=== PATIENT | female | born 1995 | race American Indian/Alaskan Native ===

== ENCOUNTER 2018-10-10 15:11 | Emergency (ER) | payer OTHER, MEDICAID, SELFPAY ==
[2018-10-10 15:28] VITALS: BP 108/59; PULSE 80; RESP 14; TEMP 37.2; O2SAT 99; BMI 31.2
--- NOTE | 2018-10-10 15:32 | DI.RAD.S_ITS ---
PROCEDURE: XR ANKLE LT MIN 3V INDICATIONS: twist and pain left ankle. TECHNIQUE: 3 views of the ankle were acquired. COMPARISON: None. FINDINGS: Bones: There is a slight cortical irregularity of the anterior aspect of the talar dome. Ankle mortise is normally aligned. No suspicious bony lesions. Soft tissues: No tibiotalar joint effusion. Achilles tendon appears normal. IMPRESSION: Slight cortical talar dome irregularity as above. This is overall nonspecific. However, given history of trauma, recommend correlation with point tenderness a small area of fracture cannot be definitively excluded. Dictated by: Camille Campos M.D. on 10/10/2018 at 15:54 Approved by: Camille Campos M.D. on 10/10/2018 at 15:55
--- NOTE | 2018-10-10 17:33 | ED.LOWEXIN ---
HPI - Extremity Injury (Lower) General Chief Complaint: Extremity Injury, Lower Stated Complaint: thinks she sprained her left ankle Time Seen by Provider: 10/10/18 17:05 Source: patient Mode of arrival: ambulatory Limitations: no limitations History of Present Illness HPI Narrative: This is a 23-year-old female who states that she was walking when her ankle gave out . She describes an inversion of the ankle while walking. Patient states she has pain kind of on both sides of the ankle and on the front. 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 He weighs about 30 lb. Patient states that made quite a bit more uncomfortable. She states she feels a little bit of numbness along the side of the foot. She has pain with ambulation. She denies any weakness. She denies any other injuries. She denies any past medical history, prior surgical history or allergies. Related Data Allergies Allergy/AdvReac Type Severity Reaction Status Date / Time No Known Drug Allergies Allergy Verified 10/10/18 15:32 Review of Systems Review of Systems ROS Unobtainable: All systems reviewed & are unremarkable except as noted in HPI and below Constitutional Denies weakness Musculoskeletal Reports as per HPI, Reports abnormal gait, Reports arthralgias, Reports joint swelling (mild), Reports limited range of motion and Reports numbness Integumentary/Breasts Denies rash, Denies unusual bruising and Denies wounds Neurologic Reports abnormal gait, Reports numbness and Denies weakness PFSH Social History Smoking Status: Current every day smoker Exam Narrative Exam Narrative: GENERAL: Alert and oriented x three, HEENT: Head normocephalic, atraumatic, EOMI, pupils reactive, face symmetric, moist mucous membranes NECK: Supple, full range of motion CARDIOVASCULAR: Regular rate and rhythm without murmurs, rubs or gallops. RESPIRATORY: Breath sounds equal bilaterally, no wheezes rales or rhonchi. ABDOMEN: Soft, nontender. Normoactive bowel sounds all 4 quadrants. No guarding or rebound, rigidity, no mass : No CVA tenderness EXTREMITIES: Normal range of motion, no clubbing, mild edema of the ankle. Patient does not have any lateral or medial malleoli tenderness. Patient does have some tenderness over the anterior talus, she does not have any other bony tenderness of the foot or over the metatarsals or toes. Patient's cap refill less than 2 sec in all 5 toes, 2+ dorsalis pedis, patient does not have any bruising, ecchymosis or wounds.. Neurovascularly intact NEUROLOGICAL: Cranial nerves II through XII grossly intact. Moving all extremities SKIN: Warm, dry, no petechiae, no rashes or lesions. Initial Vital Signs Initial Vital Signs: Vital Signs Temperature 98.9 F 10/10/18 15:28 Pulse Rate 80 10/10/18 15:28 Respiratory Rate 14 10/10/18 15:28 Blood Pressure 108/59 L 10/10/18 15:28 Pulse Oximetry 99 10/10/18 15:28 Course Orders Ordered: ED Orders 10/10/18 15:32 XR ankle LT min 3V Stat Discontinued Medications Ibuprofen (Advil) 400 mg PO NOW ONE Stop: 10/10/18 17:31 Last Admin: 10/10/18 17:46 Dose: 400 mg Vital Signs - 8 hr 10/10/18 15:28 Temperature 98.9 F Pulse Rate 80 Respiratory Rate 14 Blood Pressure 108/59 L Pulse Oximetry 99 MDM - Extremity Injury (Lower) Imaging Data ankle xray: Radiologist's impression: [address] [address] XRay Report Signed Patient: Desirae Beauchamp [facility]#: [id number] : 1995Acct:[id number] Age/Sex: 23 / FDate of Service: 10/10/18 Loc: ED Accession Number: [id number] Procedure: XR ankle LT min 3V Ordering Provider: Mariana Ivan D.O. PROCEDURE: XR ANKLE LT MIN 3V INDICATIONS: twist and pain left ankle. TECHNIQUE: 3 views of the ankle were acquired. COMPARISON: None. FINDINGS: Bones: There is a slight cortical irregularity of the anterior aspect of the talar dome. Ankle mortise is normally aligned. No suspicious bony lesions. Soft tissues: No tibiotalar joint effusion. Achilles tendon appears normal. IMPRESSION: Slight cortical talar dome irregularity as above. This is overall nonspecific. However, given history of trauma, recommend correlation with point tenderness a small area of fracture cannot be definitively excluded. Dictated by: Camille Campos M.D. on 10/10/2018 at 15:54 Approved by: Camille Campos M.D. on 10/10/2018 at 15:55 Discharge Plan Departure Patient Disposition: Home Clinical Impression: Fracture of talus Discharge Date/Time: 10/10/18 18:10 Interventions: ED Discharge Assessment Last Done: 10/10/18 18:09 Instructions: DI for Talus Fracture Activity Restrictions/Additional Instructions: Follow up with orthopedic surgery in the next 5-7 days. Call for an appointment tomorrow. Wear a walking boot until cleared by Orthopedic surgery. Use crutches until cleared by surgery. You may do toe touch weight-bearing. You may take ibuprofen and/or Tylenol as needed for pain. You may take up to 600 mg of ibuprofen every 6 hr and or up to a 1000 mg of Tylenol every 8 hr as needed. Splint Care: Keep splint clean and dry. Elevated affected body part to decrease swelling. OK to use ice pack on the affected body part. Use for 15-20 minutes each time, for 5-6x per day. If you develop worsening pain, numbness, tingling, discoloration of the affected body part, loosen the splint by loosening the AXEL wrap, and either see your doctor for an urgent re-assessment, or return to the Emergency Department. Return to the Emergency Department for any new or worsening symptoms. Referrals: Parminder Simons MD [Physician] -
[2018-10-10] MEDS: IBUPROFEN 400 MG TABLET PO (17:46)
== END 2018-10-10 18:10 | disposition home or self-care (01) ==
PROVIDERS: Emergency Provider Emergency Medicine
DX: S92.102A Unspecified fracture of left talus, initial encounter for closed fracture (principal); W01.0XXA Fall on same level from slipping, tripping and stumbling without subsequent striking against object, initial encounter
CPT/HCPCS: 73610; 99282; 99283

== ENCOUNTER → 2018-10-27 12:41 | Outpatient (CLI) | payer OTHER, MEDICAID, SELFPAY ==
--- NOTE | 2018-10-27 12:43 | DI.MRI.S_ITS ---
PROCEDURE: MR ANKLE LT WO CON INDICATIONS: ACUTE LEFT ANKLE PAIN TECHNIQUE: Noncontrast sagittal T1 spin echo and T2 fast spin echo with fat saturation, axial proton density fast spin echo and T2 fast spin echo with fat saturation, coronal T1 spin echo and T2 fast spin echo with fat saturation through the ankle/hindfoot. COMPARISON: [facility], CR, XR ANKLE LT MIN 3V, 10/10/2018, 15:43. FINDINGS: Image quality: Diagnostic. Bones and joints: There is no acute fracture, dislocation, or suspicious osseous lesion identified involving the osseous structures of the midfoot or hindfoot. Ankle mortise is well-maintained. There are no osteochondral defects involving the tibial plafond toward the talar dome. No significant joint effusions are identified. There are no significant degenerative changes of the midfoot or hindfoot. Medial structures: The deltoid and spring ligaments are intact. There slight increased signal involving the distal margin of the tibialis posterior tendon with a small amount of fluid contained within its corresponding tendon sheath. The flexor digitorum longus tendon is intact and within normal limits. There is moderate increased signal evident involving the distal flexor hallucis longus myotendinous junction with a moderate amount of fluid contained within its tendon sheath. The posterior tibial neurovascular bundle appears to be within normal limits through the region of the tarsal tunnel without extrinsic mass effect. Lateral structures: The anterior and posterior distal tibiofibular ligaments are noted to be intact. The anterior and posterior talofibular ligaments are intact. The calcaneofibular ligament is not adequately seen, but appears to be intact. There is slight increased signal identified involving the peroneus brevis and peroneus longus tendons just below the level of the lateral malleolus without significant tearing. Normal fatty signal is seen within the sinus tarsi. Anterior structures: The tibialis anterior, extensor hallucis longus, and extensor digitorum longus tendons appear intact. Posterior and plantar structures: Achilles tendon is intact. Medial and lateral bands of the plantar fascia are of normal thickness. IMPRESSION: 1. Moderate tendinopathy and tenosynovitis of the flexor hallucis longus. 2. Mild tibialis posterior tenosynovitis. 3. Mild peroneus brevis and peroneus longus tendinopathy. 4. No acute or full thickness ligamentous injuries of the ankle are evident. Dictated by: Rolf Coker M.D. on 10/27/2018 at 13:02 Approved by: Rolf Coker M.D. on 10/27/2018 at 13:11
== END ==
PROVIDERS: Visit Provider Orthopaedic Surgery
DX: M25.572 Pain in left ankle and joints of left foot (principal); M65.872 Other synovitis and tenosynovitis, left ankle and foot
CPT/HCPCS: 73721

== ENCOUNTER 2022-09-28 16:42 | Emergency (ER) | payer OTHER, SELFPAY ==
[2022-09-28 16:53] VITALS: BP 124/62; PULSE 64; RESP 16; TEMP 36.6; O2SAT 99; BMI 24.4
[2022-09-28 17:00] VITALS: BP 80/72; PULSE 48; RESP 18
[2022-09-28 17:05] VITALS: BP 90/60; PULSE 52; RESP 18
[2022-09-28 17:37] LABS: Add Manual Diff / Slide Review NO; Basophils Absolute Auto 100 /uL (0-100); Basophils Percent Auto 0.6 % (0-2); Eosinophils Absolute Auto 100 /uL (0-450); Eosinophils Percent Auto 1.1 % (2-4); Hemoglobin 11.6 g/dL (12.0-16.0); Lymphocytes Absolute Auto 1300 /uL (1100-4500); Mean Corpuscular HGB Conc 33.3 % (30-36); Mean Corpuscular Hemoglobin 28.6 PG (26-34); Mean Corpuscular Volume 85.8 fL (80-100); Monocytes Absolute Auto 500 /uL (0-900); Monocytes Percent Auto 5.5 % (3-14); Neutrophils Absolute Auto 7400 /uL (1500-7000); Neutrophils Percent Auto 78.8 % (50-75); Platelet Count 282 X10^3/uL (150-400); Red Blood Cell Count 4.08 X10^6/uL (4.0-5.2); Red Cell Distribution Width 13.8 % (11.6-14.8); White Blood Cell Count 9.4 X10^3/uL (4.5-11.0)
[2022-09-28 17:40] LABS: Alanine Aminotransferase 13 IU/L (<35); Alkaline Phosphatase 50 U/L (38-126); Aspartate Aminotransferase 22 IU/L (14-36); BUN Creatinine Ratio 16.7 (6-22); Bilirubin Total 0.6 mg/dL (0.2-1.3); Blood Urea Nitrogen 10 mg/dL (7-17); Calcium 8.7 mg/dL (8.4-10.2); Carbon Dioxide 24 mmol/L (22-32); Chloride 103 mmol/L (98-107); Estimated Glomerular Filt Rate > 60 mL/min (>60); Glucose 100 mg/dL (70-100); HEMOLYSIS < 15 (0-50); Potassium 3.6 mmol/L (3.4-5.1); Sodium 138 mmol/L (137-145); Total Protein 7.8 g/dL (6.3-8.2)
[2022-09-28 17:57] LABS: HCG Quantitative /Beta subunit < 2.4 mIU/mL
[2022-09-28 18:05] VITALS: BP 110/70; PULSE 62; RESP 18
[2022-09-28 20:10] VITALS: BP 99/62; PULSE 65; RESP 18; O2SAT 99
--- NOTE | 2022-09-29 14:07 | ED_ITS ---
HPI - Female Genitourinary <Mercy Whitaker PA-C - Last Filed: 09/29/22 14:25> General Chief complaint: OB/Uterine Contractions Stated complaint: losing blood and on period/ fainting Time Seen by Provider: 09/28/22 17:05 History of Present Illness HPI Narrative: 27-year-old female with no reported past medical history presents to the ED with a heavier than normal period. Patient states that she tends to have heavy periods as a baseline, also associated with clots. However, patient is here in the ED today since this. Has been heavier than her usual period with larger clots. Patient also endorses abdominal cramping which is baseline for her during her period. Patient also states that she has frequent syncopal episodes with prodromes. Patient describes her prodromes as diminished hearing, tunnel vision. Patient states that during this. She is had 1 syncopal episode. Patient has a brother who was diagnosed with a congenital condition, which she stated was SVT for which he has had some ablation procedures. Patient denies that she has been seen by a natural sciences manager or evaluated for the syncopal episodes. Patient denies fever, chills, chest pain, shortness of breath, nausea, vomiting, constipation, diarrhea, dysuria, lightheadedness, dizziness. Patient currently is currently not on control. Related Data Allergies Allergy/AdvReac Type Severity Reaction Status Date / Time No Known Drug Allergies Allergy Verified 09/28/22 16:58 Review of Systems <Mercy Whitaker PA-C - Last Filed: 09/29/22 14:25> Review of Systems ROS Unobtainable: All systems reviewed & are unremarkable except as noted in HPI and below Constitutional Constitutional: Denies chills, Denies fatigue, Denies fever(s), Denies frequent falls, Denies lethargy and Denies weakness Eyes Eyes: Denies change in vision, Denies eye discharge, Denies irritation and Denies loss of vision ENT Ears, Nose, Mouth, and Throat: Denies change in voice, Denies dizziness, Denies neck pain, Denies sore throat and Denies throat swelling Cardiovascular Cardiovascular: Denies chest pain, Denies irregular heart rhythm, Denies lightheadedness, Denies palpitations, Denies dyspnea, Denies dyspnea on exertion and Denies orthopnea Respiratory Respiratory: Denies cough, Denies dyspnea, Denies dyspnea on exertion and Denies wheezing Gastrointestinal Gastrointestinal: Denies change in bowel habits, Denies diarrhea, Denies nausea and Denies vomiting Genitourinary Genitourinary: Denies hematuria, Reports menorrhagia, Reports dysmenorrhea, Denies flank pain, Denies urinary incontinence and Denies urinary urgency Musculoskeletal Musculoskeletal: Denies back pain, Denies muscle weakness, Denies neck pain, Denies numbness and Denies tingling Integumentary/Breasts Skin/Breast: Denies pruritus, Denies erythema, Denies rash and Denies wounds Neurologic Neurologic: Denies behavioral changes, Denies confusion, Denies dizziness, Rishi es frequent falls, Denies loss of vision, Denies numbness, Denies tingling and Denies weakness Psychiatric Psychiatric: Denies anxiety, Denies behavioral changes, Denies confusion, Denies depression, Denies homicidal ideation and Denies suicidal ideation Endocrine Endocrine: Denies fatigue, Denies flushing and Denies palpitations Hematologic/Lymphatic Hematologic/Lymphatic: Denies easy bruising Allergic/Immunologic Allergic/Immunologic: Denies urticaria, Denies throat swelling and Denies wheezing Patient History <Mercy Whitaker PA-C - Last Filed: 09/29/22 14:25> alcohol intake frequency: 0-2 drinks per day Substance Use Type: does not use Exam <Mercy Whitaker PA-C - Last Filed: 09/29/22 14:25> Narrative Exam Narrative: Const General:?cooperative, healthy appearing and comfortable [facility] Head:?normal to inspection Ears:?hearing grossly normal bilaterally Nose:?external nose normal Face and sinus:?normal facial exam and sinuses nontender Mouth:?oral mucosae normal Throat:?posterior oropharynx normal Eyes General:?appearance normal, both eyes and all related structures Neck Neck:?normal visual inspection and no lymphadenopathy noted Resp Effort & Inspection:?normal respiratory effort Auscultation:?clear to auscultation bilaterally Cardio Rate:?regular rate Rhythm:?regular rhythm GI Abdomen is soft, nondistended. Abdomen is diffusely tender to palpation. There is no CVA tenderness. Neuro General:?patient alert, patient awake and patient oriented x3 Initial Vital Signs Initial Vital Signs: Vital Signs Temperature 98 F 09/28/22 16:53 Pulse Rate 64 09/28/22 16:53 Respiratory Rate 16 09/28/22 16:53 Blood Pressure 124/62 09/28/22 16:53 Pulse Oximetry 99 09/28/22 16:53 Oxygen Delivery Method 09/28/22 16:53 <Clint Pendleton DO - Last Filed: 09/30/22 10:45> Initial Vital Signs Initial Vital Signs: Vital Signs Temperature 98 F 09/28/22 16:53 Pulse Rate 64 09/28/22 16:53 Respiratory Rate 16 09/28/22 16:53 Blood Pressure 124/62 09/28/22 16:53 Pulse Oximetry 99 09/28/22 16:53 Oxygen Delivery Method 09/28/22 16:53 MDM - Female Genitourinary <Mercy Whitaker PA-C - Last Filed: 09/29/22 14:25> Lab Data Result diagrams: 09/28/22 17:10 09/28/22 17:10 Labs: Lab Results 09/28/22 09/28/22 09/28/22 Range/Units 17:10 17:10 17:10 WBC 9.4 (4.5-11.0) X10^3/uL RBC 4.08 (4.0-5.2) X10^6/uL Hgb 11.6 L (12.0-16.0) g/dL Hct 35.0 L (36-46) % MCV 85.8 (80-100) fL MCH 28.6 (26-34) PG MCHC 33.3 (30-36) % RDW 13.8 (11.6-14.8) % Plt Count 282 (150-400) X10^3/uL Neut % (Auto) 78.8 H (50-75) % Lymph % (Auto) 14.0 L (25-40) % [place] % (Auto) 5.5 (3-14) % Eos % (Auto) 1.1 L (2-4) % Baso % (Auto) 0.6 (0-2) % Neut # (Auto) 7400 H (3856-0878) /uL Lymph # (Auto) 1300 (6621-7618) /uL [place] # (Auto) 500 (0-900) /uL Eos # (Auto) 100 (0-450) /uL Baso # (Auto) 100 (0-100) /uL Sodium 138 (137-145) mmol/L Potassium 3.6 (3.4-5.1) mmol/L Chloride 103 (98-107) mmol/L Carbon Dioxide 24 (22-32) mmol/L BUN 10 (7-17) mg/dL Creatinine 0.60 (0.52-1.04) mg/dL Estimated GFR > 60 (>60) mL/min BUN/Creatinine Ratio 16.7 (6-22) Glucose 100 (70-100) mg/dL Calcium 8.7 (8.4-10.2) mg/dL Total Bilirubin 0.6 (0.2-1.3) mg/dL AST 22 (14-36) IU/L ALT 13 (<35) IU/L Alkaline Phosphatase 50 (38-126) U/L Total Protein 7.8 (6.3-8.2) g/dL HCG, Quant < 2.4 mIU/mL Blood Type A Positive Antibody Screen Negative MDM Narrative Medical decision making narrative: 27-year-old female with no reported past medical history presents to the ED with a heavier than normal period. Concern for versus threatened miscarriage versus anemia versus cardiac etiology versus vasovagal syncope versus other. Will obtain EKG, labs, hCG quant. HCG was negative, labs within normal limits. No evidence of anemia. Patient offered to trial medroxyprogesterone to stem the bleeding, patient considered but deferred any treatment for it. Considered imaging for diffuse abdominal tenderness, however patient states that this is baseline for her during her periods. Patient states she did not come to the ED for the cramping, was more concerned about anemia from the heavy periods. Patient agrees to return to the ED if the bleeding, cramping are more prolonged or severe. EKG with sinus bradycardia with short GA, no acute ST-T changes, no axis deviation. Patient agrees to follow-up with the natural sciences manager for further evaluation for her frequent syncopal episodes. Patient agrees to follow-up with her OBGYN for the heavy periods. Also discussed the possibility of bleeding dyscrasias such as Von Willebrand's that could contribute to heavy periods. Medical records reviewed:??yes ? Exam documented above, pertinent findings include:?diffuse abd TTP ? Independently reviewed EKG as above: yes ? Disposition: see below, along with detailed discharge instructions that have been reviewed with patient as well as indications for ED re-evaluation and additional outpatient follow up <Clint Pendleton DO - Last Filed: 09/30/22 10:45> Lab Data Labs: Lab Results 09/28/22 09/28/22 09/28/22 Range/Units 17:10 17:10 17:10 WBC 9.4 (4.5-11.0) X10^3/uL RBC 4.08 (4.0-5.2) X10^6/uL Hgb 11.6 L (12.0-16.0) g/dL Hct 35.0 L (36-46) % MCV 85.8 (80-100) fL MCH 28.6 (26-34) PG MCHC 33.3 (30-36) % RDW 13.8 (11.6-14.8) % Plt Count 282 (150-400) X10^3/uL Neut % (Auto) 78.8 H (50-75) % Lymph % (Auto) 14.0 L (25-40) % Woodford % (Auto) 5.5 (3-14) % Eos % (Auto) 1.1 L (2-4) % Baso % (Auto) 0.6 (0-2) % Neut # (Auto) 7400 H (5049-4318) /uL Lymph # (Auto) 1300 (4961-8881) /uL [place] # (Auto) 500 (0-900) /uL Eos # (Auto) 100 (0-450) /uL Baso # (Auto) 100 (0-100) /uL Sodium 138 (137-145) mmol/L Potassium 3.6 (3.4-5.1) mmol/L Chloride 103 (98-107) mmol/L Carbon Dioxide 24 (22-32) mmol/L BUN 10 (7-17) mg/dL Creatinine 0.60 (0.52-1.04) mg/dL Estimated GFR > 60 (>60) mL/min BUN/Creatinine Ratio 16.7 (6-22) Glucose 100 (70-100) mg/dL Calcium 8.7 (8.4-10.2) mg/dL Total Bilirubin 0.6 (0.2-1.3) mg/dL AST 22 (14-36) IU/L ALT 13 (<35) IU/L Alkaline Phosphatase 50 (38-126) U/L Total Protein 7.8 (6.3-8.2) g/dL HCG, Quant < 2.4 mIU/mL Blood Type A Positive Antibody Screen Negative Discharge Plan Departure Patient Disposition: Home Clinical Impression: Vaginal bleeding Instructions: DI for Vaginal Bleeding Activity Restrictions/Additional Instructions: You were evaluated in the ED today for heavy menstrual periods. Your labs were normal, with no signs of anemia. Your test was negative. We discussed a course of medroxyprogesterone to slow down the bleeding, which you considered but deferred. You may also trial ibuprofen 3 times a day which will help with the cramping and also slow down the bleeding. Please follow-up with your OBGYN tomorrow for a follow-up on your heavy periods. Please also follow- up with [facility] at [phone] to be evaluated for your frequent episodes of fainting. If your bleeding or cramping worsens, please return to the ED for further evaluation. Stand Alone Forms: Patient Portal/API <Clint Pendleton DO - Last Filed: 09/30/22 10:45> Cosign ED Attending Cosnathanature Attestation: I was immediately available in the department for consultation. This documentation has been reviewed and I agree with assessment and plan. Supervised by Clint Pendlteon DO
[2022-10-02 15:53] LABS: Albumin 4.3 g/dL (3.5-5.0); Albumin Globulin Ratio 1.2 (1.0-2.8); Globulin 3.5 g/dL (1.7-4.1)
== END 2022-09-28 20:43 | disposition home or self-care (01) ==
PROVIDERS: Emergency Provider Student in an Organized Health Care Education/Training Program
DX: N93.9 Abnormal uterine and vaginal bleeding, unspecified (principal); R07.9 Chest pain, unspecified
CPT/HCPCS: 36415; 80053; 84702; 85025; 86850; 86900; 86901; 93005; 99283; 99284